=== PATIENT | female | born 1980 | race Two or more races ===

== ENCOUNTER 2024-12-13 22:38 | Emergency (ER) | payer MEDICAID ==
[~2024-12-13] VITALS: Ht 162.6 cm; Wt 74.8 kg
[2024-12-13] MEDS ORDERED: ONDA4TAB5 PO (23:30)
[2024-12-13 23:36] VITALS: BP 130/83; TEMP 208.9; O2SAT 95
== END 2024-12-13 23:37 | disposition home or self-care (01) ==
LOC: ER 22:38
DX: B34.9 Viral infection, unspecified (principal); R11.10 Vomiting, unspecified; Z20.822 Contact with and (suspected) exposure to COVID-19; Z88.1 Allergy status to other antibiotic agents
CPT/HCPCS: 71045; A4606; A4663